=== PATIENT | female | born 1990 | race Caucasian/White ===

== ENCOUNTER 2019-09-08 05:50 | Inpatient (IN) | payer MEDICAID ==
[~2019-09-08 05:50] MED LIST: Acetaminophen 325 MG Tab PO PRN; Acetaminophen/oxyCODONE 325-5 MG Tab PO PRN; Carboprost Tromethamine 250 MCG/1 ML Amp IM PRN; Citric Acid/Sodium Citrate Solution 30 ML Cup PO ONE; Docusate Sodium 100 MG Cap PO PRN; Ibuprofen 800 MG Tab PO PRN; Lactated Ringers 1,000 ML IV SCH; Methylergonovine 0.2 MG/1 ML Amp IM PRN; Misoprostol 400 MCG (4 X 100 MCG TAB) RECTAL PRN; Naloxone 2 MG/2 ML Syringe IVPUSH PRN; Ondansetron 4 MG/2 ML SDV IVPUSH PRN; Simethicone 80 MG Tab.Chew PO SCH; Tranexamic Acid 1,000 MG in Sodium Chloride 0.9% 100 ML IV PRN; ceFAZolin 2 GM in Premix Bag 1 BAG IV ONE; diphenhydrAMINE 50 MG/ML SDV IVPUSH PRN; ePHEDrine 50 MG/ML SDV IVPUSH PRN
[2019-09-08] MEDS ORDERED: Acetaminophen 325 MG Tab PO PRN (06:00)
[2019-09-08] MEDS ORDERED: Methylergonovine 0.2 MG/1 ML Amp IM PRN (06:00)
[2019-09-08] MEDS ORDERED: diphenhydrAMINE 50 MG/ML SDV IVPUSH PRN (06:00)
[2019-09-08] MEDS ORDERED: Naloxone 2 MG/2 ML Syringe IVPUSH PRN (06:00)
[2019-09-08] MEDS ORDERED: Ibuprofen 800 MG Tab PO PRN (06:00)
[2019-09-08] MEDS ORDERED: ePHEDrine 50 MG/ML SDV IVPUSH PRN (06:00)
[2019-09-08] MEDS ORDERED: Misoprostol 400 MCG (4 X 100 MCG TAB) RECTAL PRN (06:00)
[2019-09-08] MEDS ORDERED: Carboprost Tromethamine 250 MCG/1 ML Amp IM PRN (06:00)
[2019-09-08] MEDS ORDERED: Oxytocin/Normal Saline 30 UNIT/500 ML BAG IV SCH (06:00)
[2019-09-08] MEDS ORDERED: Tranexamic Acid 1,000 MG in Sodium Chloride 0.9% 100 ML IV PRN (06:00)
[2019-09-08] MEDS ORDERED: Ondansetron 4 MG/2 ML SDV IVPUSH PRN (06:00)
[2019-09-08] MEDS: Lactated Ringers 1,000 ML IV SCH ×2 (06:10→17:54)
[2019-09-08] MEDS ORDERED: Oxytocin/Normal Saline 60 UNIT/1,000 ML BAG ONE (06:57)
[2019-09-08] MEDS ORDERED: Citric Acid/Sodium Citrate Solution 30 ML Cup PO ONE (07:15)
[2019-09-08] MEDS ORDERED: Lactated Ringers 1,000 ML IV SCH (08:30)
[2019-09-08] MEDS ORDERED: Prenatal Multivitamin with Calcium/Folic Acid/Iron Tab PO SCH (09:00)
--- NOTE | 2019-09-08 12:24 | OBOUT ---
DATE: 09/08/2019 TIME: 6:06 to 6:25. REASON FOR NST: 1. Intrauterine at 37 weeks, confirmed with 20 and 6/7 weeks ultrasound. 2. Previous x1. Request repeat low transverse . 3. Gestational hypertension. 4. History of preeclampsia with previous . 5. History of aspiration pneumonia with her first . 6. GBS negative. 7. G2, P1-0-0-1. NST INTERPRETATION: During this time period, heart tone baseline is approximately 130, and at least two 15 x 15 beats per minute accelerations making this strip reactive as well as reassuring. Tocometer reveals potential of 3 contractions minimally felt by the patient. Blood pressure 142/85, respiratory rate 16, heart rate 87, temperature 98.1. ASSESSMENT: 1. Nonstress test, reactive and reassuring. 2. Tocometer with contractions, minimally felt by the patient. PLAN: Please see H and P, which is done through [employer] for this. Records were called for, reviewed, and supplemented by the patient's history as well as review of systems fully reviewed and felt to be otherwise contributory as previously noted. Please see H and P and update sticker in chart. We will proceed to the OR as soon as crew is ready and available for her repeat C- section. [facility] /[id number]
[2019-09-08] MEDS: Simethicone 80 MG Tab.Chew PO SCH ×4 (13:34→20:45)
[2019-09-08] MEDS: Ketorolac 30 MG/ML SDV IVPUSH SCH ×3 (13:35→20:47)
[2019-09-08] MEDS ORDERED: Oxytocin/Normal Saline 30 UNIT/500 ML BAG IV ONE (13:59)
[2019-09-08] MEDS: Prenatal Multivitamin with Calcium/Folic Acid/Iron Tab PO SCH (14:16)
--- NOTE | 2019-09-08 15:10 | OR ---
DATE: 09/08/2019 PREOPERATIVE DIAGNOSES: 1. Intrauterine at 37 weeks, confirmed with 20 and 6/7 weeks ultrasound. 2. Previous x1. Request repeat low transverse section. 3. Gestational hypertension. 4. History of preeclampsia with previous . 5. History of aspiration pneumonia with her first /last delivery. 6. Group B Streptococcus negative. 7. G2, P1-0-0-1. POSTOPERATIVE DIAGNOSES: 1. Intrauterine at 37 weeks, confirmed with 20 and 6/7 weeks ultrasound, delivered. 2. Previous x1. Request repeat low transverse section. 3. Gestational hypertension. 4. History of preeclampsia with previous . 5. History of aspiration pneumonia with her first /last delivery. 6. Group B Streptococcus negative. 7. G2, P1-0-0-1. 8. Difficulty delivering vertex, requiring Kiwi vacuum assistance. PROCEDURE PERFORMED: Nonstress test followed by repeat low transverse section with Kiwi vacuum assistance. BRICKMASON HELPER: Katie Sanderson MD ANESTHESIA: Spinal. ESTIMATED BLOOD LOSS: 500 mL. IV FLUIDS: 1500 mL. URINE OUTPUT: 100 mL and clear yellow. START: 7:53. UTERINE INCISION: 7:56. DELIVERY: 7:57. STOP: 8:14. FINDINGS: Female, score 7 and 9, weight pending. DESCRIPTION OF PROCEDURE IN DETAIL: After proper consent, the patient was brought to the operating room, where a spinal anesthetic was administered. A Delgadillo was placed in the preoperative room under sterile conditions. The abdomen was prepped and draped in normal sterile fashion with the patient placed in supine position with a left lateral tilt. A skin incision was then made over the lower abdomen in a transverse Pfannenstiel-type fashion over previous scar. This was carried down to the fascia and scored in the midline. The subcutaneous tissue was raked laterally with a De La Rosa retractor. The fascial incision was extended in a transverse fashion using curved Mayos. Yossi clamps x2 were used to grasp the superior aspect of the fascia, and the rectus muscles were dissected from the fascia using sharp and blunt technique. In a similar fashion, Yossi clamps x2 were used to grasp the inferior portion of the incision, and the rectus and pyramidalis muscles were dissected from the fascia using sharp and blunt technique. The rectus muscles were in the midline with blunt technique. The abdominal cavity was then entered in blunt technique, and the incision was extended superiorly and inferiorly with blunt technique. An Braldey O large retractor was then introduced and used. The vesicouterine peritoneum was then identified and incised in a transverse fashion with Metzenbaum scissors and bladder flap was made digitally. A curvilinear incision was made on the lower uterine segment at 0756 hours. Uterus was entered sharply. Uterine incision was extended in transverse fashion using blunt technique. Artificial rupture of membranes was then performed with Allis clamps. Subsequently, vertex was attempted to be delivered through the incision, and there was some difficulty, therefore Kiwi vacuum was called for, pumped up to the green, and with gentle pulling and fundal pressure, vertex was delivered. Vacuum was disengaged. This was on for less than 20 seconds. Shoulders as well as rest of the infant then delivered there without difficulty. Mouth and nares were suctioned. Cord was doubly clamped and cut, and was brought over to the team. Approximately 10 mL of cord blood was then obtained for labs. Placenta then delivered with gentle cord traction and fundal massage. Uterine cavity was then cleared of all blood clots and debris with lap sponge. Porter clamps were used to grasp the uterine incision. This was closed in a running locked fashion tied at the lateral margins with 1-0 Vicryl. First inspection of the uterine incision revealed hemostasis. Bradley O retractor was then removed and paracolic gutters were then cleared of all blood clots and debris with lap sponge. Anterior cul-de-sac was then irrigated copiously and all blood clots and debris removed. Second and final inspection of the uterine incision and anterior cul-de-sac revealed hemostasis. Rectus muscles were then reapproximated in midline with [id number] stitch using 1-0 Vicryl. Subfascial tissues were found to be hemostatic. Fascia was closed in a running fashion and tied at the lateral margins with 0 looped PDS. Subcutaneous tissue was irrigated copiously and hemostasis reassured. Skin was reapproximated with medium ben. Sterile Aquacel dressing was applied. Uterine fundus was firm and massaged at the conclusion of the case -2 below umbilicus. No immediate complications were noted. Sponge, lap, and needle counts were correct. The patient received 2 g of Ancef preoperatively, Pitocin per protocol, and will receive Toradol at the conclusion of the case for pain control. Mother and infant are currently stable at the time of this dictation. [facility] /[id number]
[2019-09-08] MEDS ORDERED: Morphine PF 1 MG/ML Amp ONE (15:42)
[2019-09-08] MEDS ORDERED: Ondansetron 4 MG/2 ML SDV IV ONE (15:42)
[2019-09-08] MEDS ORDERED: ePHEDrine 50 MG/ML SDV IV ONE (15:42)
[2019-09-08] MEDS ORDERED: Dexamethasone 4 MG/ML SDV IV ONE (15:42)
[2019-09-08] MEDS ORDERED: Ketorolac 30 MG/ML SDV IVPUSH ONE (15:42)
[2019-09-08] MEDS ORDERED: Lactated Ringers 1,000 ML IV ONE (15:42)
[2019-09-08] MEDS: Docusate Sodium 100 MG Cap PO PRN (20:46)
[2019-09-09] MEDS: Lactated Ringers 1,000 ML IV SCH (01:42)
[2019-09-09] MEDS: Ketorolac 30 MG/ML SDV IVPUSH SCH (01:44)
[2019-09-09] MEDS: Simethicone 80 MG Tab.Chew PO SCH ×4 (08:24→20:33)
[2019-09-09] MEDS: Acetaminophen/oxyCODONE 325-5 MG Tab PO PRN ×4 (08:24→23:16)
[2019-09-09] MEDS: Docusate Sodium 100 MG Cap PO PRN ×2 (08:24→20:33)
[2019-09-09] MEDS: Prenatal Multivitamin with Calcium/Folic Acid/Iron Tab PO SCH (08:24)
[2019-09-09] MEDS: Ibuprofen 800 MG Tab PO PRN ×2 (10:27→20:33)
--- NOTE | 2019-09-09 10:52 | PN ---
DATE: 09/09/2019 Postop day #1. SUBJECTIVE: The patient is tolerating p.o., has not ambulated. Delgadillo is in place. Passing gas. Pain is under control. OBJECTIVE: Vital Signs: Temperature 97.9, heart rate 71, blood pressure 124/67, respiratory rate 18. Lungs: Clear to auscultation bilaterally. Heart: S1, S2. Regular rate and rhythm. Abdomen: Firm uterus, -1 below umbilicus. Aquacel dressing has been changed and is dry and intact. COLE hose and SCD hose are on. LABORATORY DATA: Pending is a CBC. ASSESSMENT: Postop day #1 status post repeat low- transverse complicated by gestational hypertension with blood pressure under control at this point in time. PLAN: We will continue to follow clinically and closely. The patient understands and agrees with the above treatment plan. [facility] /[id number]
[2019-09-10] MEDS: Ibuprofen 800 MG Tab PO PRN ×3 (05:55→21:56)
[2019-09-10] MEDS: Acetaminophen/oxyCODONE 325-5 MG Tab PO PRN ×4 (05:56→21:54)
--- NOTE | 2019-09-10 09:16 | PN ---
DATE: 09/10/2019 Postop day #2 status post repeat low-transverse . SUBJECTIVE: The patient is tolerating p.o.; is ambulating, urinating, and passing flatus; and denies any pain today. OBJECTIVE: Vital Signs: Temperature 98, heart rate 84, blood pressure 135/84, and respiratory rate is 20. Lungs: Clear to auscultation bilaterally. Heart: S1 and S2. Regular rate and rhythm. ABDOMEN: Firm uterus at the umbilicus. Aquacel dressing appears dry and intact. EXTREMITIES: No peripheral edema. No calf pain. LABORATORIES: Yesterday, white cell count of 11.5, hemoglobin of 10.7 compared to a predelivery hemoglobin of 13.1, and platelets of 180. ASSESSMENT AND PLAN: Postoperative day #2 status post repeat low-transverse section with complicated by gestational hypertension with a history of preeclampsia with previous and difficulty delivering vertex, requiring Kiwi vacuum assistance. PLAN: We will continue to follow clinically and closely at this point in time. Potential for discharge tomorrow was discussed with the patient. She understands and agrees. [facility] /[id number]
[2019-09-10] MEDS: Prenatal Multivitamin with Calcium/Folic Acid/Iron Tab PO SCH (09:51)
[2019-09-10] MEDS: Simethicone 80 MG Tab.Chew PO SCH ×4 (09:52→21:54)
[2019-09-10] MEDS: Docusate Sodium 100 MG Cap PO PRN ×2 (09:52→21:53)
[2019-09-11] MEDS: Ibuprofen 800 MG Tab PO PRN (05:36)
[2019-09-11] MEDS: Acetaminophen/oxyCODONE 325-5 MG Tab PO PRN (05:37)
[2019-09-11] MEDS: Simethicone 80 MG Tab.Chew PO SCH (08:20)
[2019-09-11] MEDS: Prenatal Multivitamin with Calcium/Folic Acid/Iron Tab PO SCH (08:20)
--- NOTE | 2019-09-11 09:55 | DISCH ---
ADMIT DIAGNOSES: 1. Intrauterine at 37 weeks, confirmed with 20-6/7 week ultrasound. 2. Previous section x1. Request repeat low transverse section. 3. Gestational hypertension. 4. History of preeclampsia with previous . 5. History of aspiration pneumonia with first section. 6. Group B Streptococcus negative. 7. G2, P1-0-0-1. POSTOPERATIVE DIAGNOSES: 1. Intrauterine at 37 weeks, confirmed with 20-6/7 week ultrasound, delivered. 2. Difficulty delivering vertex, requiring Kiwi vacuum assistance. 3. Previous section x1. Request repeat low transverse section. 4. Gestational hypertension. 5. History of preeclampsia with previous . 6. History of aspiration pneumonia with first section. 7. Group B Streptococcus negative. 8. G2, P1-0-0-1. PROCEDURE PERFORMED: Nonstress test followed by repeat low transverse section. HISTORY OF PRESENT ILLNESS: Please see H and P. SUMMARY OF HOSPITAL COURSE: The patient on the above date with above diagnoses, underwent elective repeat low transverse under spinal anesthesia with an EBL of 500 mL, yielding a female with scores of 7 and 9, weighing 6 pounds 9 ounces (2990 g), did require Kiwi vacuum assistance. Please see op note for further details. See progress notes for evaluations. On date of discharge, the patient was tolerating p.o., was ambulating, urinating, passing flatus. DISCHARGE EVALUATION: Vital Signs: Temperature 97.6, heart rate 84, blood pressure 134/80, respiratory rate 18. Lungs: Clear to auscultation bilaterally. Heart: S1, S2. Regular rate and rhythm. Abdomen: Firm uterus around the umbilicus. Aquacel dressing dry and intact. Extremities: No peripheral edema. No calf pain. LABORATORY DATA: Postop day #1, white cell count 11.5, hemoglobin 10.7, coming down from 13.1, and platelets of 180. CONDITION ON DISCHARGE COMPARED TO CONDITION ON ADMISSION: Improved. DISCHARGE INSTRUCTIONS: 1. Diet: As tolerated. 2. Activity: No lifting more than 20 pounds. No sit-ups, straining, and pelvis rest for the next 6 weeks with immediate return to fertility discussed with the patient. 3. Reasons to return or go to the emergency room discussed with the patient in detail, including, but not limited to, temperature greater than 100.4, foul- smelling discharge, red hot tender breasts, or increased vaginal bleeding. DISCHARGE MEDICATIONS: [id number] ibuprofen for pain, Percocet 5/325 one to two q.6 hours p.r.n., #20, no refills. Discussed use of medications, adverse and unwanted effects, as well as precautions with driving. Follow up on 09/15/2019 for staple removal. In addition, we will follow up with baby tomorrow, and I did discuss with the patient in the interim reasons to go to emergency room in regard to as well as importance of followup and ramifications of not doing so. She understands and agrees. [facility] /[id number]
== END 2019-09-11 09:15 | disposition home or self-care (01) | DRG 788 ==
LOC: DL.MS 05:50 → OBSVTOIN 07:57
PROVIDERS: ADMIT Family Medicine; ATTEND Family Medicine
PROC: 10D00Z1 Extraction of Products of Conception, Low, Open Approach (ICD-10-PCS; principal; 2019-09-08)
DX: O34.211 Maternal care for low transverse scar from previous cesarean delivery (principal); Z3A.37 37 weeks gestation of pregnancy; Z37.0 Single live birth; O13.4 Gestational [pregnancy-induced] hypertension without significant proteinuria, complicating childbirth; Z11.59 Encounter for screening for other viral diseases
CPT/HCPCS: 01961; 36415; 85027; 86850; 86900; 86901; 94010; A9270-GY; J0690; J1100; J1885; J2274; J2405; J2590; J7120; U0002